=== PATIENT | female | born 1995 | race Asian ===

== ENCOUNTER 2019-11-28 13:52 | Emergency (ER) | payer BC ==
[2019-11-28 14:30] LABS: BILIRUBIN,URINE NEGATIVE (NEGATIVE); GLUCOSE, URINE (UA) NEGATIVE (NEGATIVE); KETONES,URINE (UA) NEGATIVE (NEGATIVE); LEUKOCYTE ESTERASE, URINE NEGATIVE (NEGATIVE); NITRITE,URINE NEGATIVE (NEGATIVE); OCCULT BLOOD,URINE SMALL (NEGATIVE); PH,URINE 5.5 PH (5.0-7.5); PROTEIN,URINE NEGATIVE (NEGATIVE); UROBILINOGEN,URINE 0.2 (NORMAL) E.U./dL (NORMAL)
[2019-11-28 14:32] LABS: CLARITY,URINE HAZY (CLEAR)
[2019-11-28 14:40] LABS: BASOPHILS # (AUTO) 0.1 10^3/uL (0.0-0.1); BASOPHILS % (AUTO) 0.6 %; EOSINOPHILS # (AUTO) 0.8 10^3/uL (0.0-0.7); EOSINOPHILS % (AUTO) 6.8 %; HGB - HEMOGLOBIN 13.3 g/dL (12.0-16.0); LYMPHOCYTES % (AUTO) 17.9 %; MEAN CORPUSCULAR HEMOGLOBIN 31.4 pg (27.0-31.0); MEAN CORPUSCULAR HGB CONC 33.1 g/dL (32.0-36.0); MEAN CORPUSCULAR VOLUME 94.8 fL (81.0-99.0); MEAN PLATELET VOLUME 11.1 fL (7.9-10.8); MONOCYTES # (AUTO) 0.6 10^3/uL (0.0-1.0); MONOCYTES % (AUTO) 4.9 %; NEUTROPHILS # (AUTO) 7.8 10^3/uL (1.5-6.6); NEUTROPHILS % (AUTO) 69.4 %; PLT - PLATELET COUNT 383 10^3/uL (130-450); RED BLOOD COUNT 4.24 10^6/uL (4.20-5.40); RED CELL DISTRIBUTION WIDTH 13.2 % (12.0-15.0); WHITE BLOOD COUNT 11.2 x10^3/uL (4.8-10.8)
[2019-11-28 14:59] LABS: BACTERIA,URINE Rare /HPF (None Seen); RBC,URINE 0-5 /HPF (0-5); SQUAMOUS EPITHELIAL CELL,UR MANY Squamous (<= Few)
[2019-11-28 15:00] LABS: HCG UR QUAL NEGATIVE; MUCUS,URINE Moderate Strands
[2019-11-28 15:14] LABS: ALBUMIN 4.6 g/dL (3.2-5.5); ALBUMIN/GLOBULIN RATIO 1.2 (1.0-2.2); BILIRUBIN,TOTAL 0.6 mg/dL (0.2-1.0); CALCIUM 9.4 mg/dL (8.5-10.3); CREATININE 0.7 mg/dL (0.4-1.0); TOTAL PROTEIN 8.5 g/dL (6.7-8.2)
--- NOTE | 2019-11-28 15:48 | ED Physician Documentation ---
PD HPI ABD PAIN - Stated complaint Stated Complaint: ABD PAIN - Chief complaint Chief Complaint: Abd Pain - History obtained from History obtained from: Patient - History of Present Illness Timing - onset: How many days ago (2) Timing - duration: Days (2) Timing - details: Gradual onset, Waxing and waning Pain level max: 6 Pain level now: 5 Quality: Aching, Pain Location: RLQ, Suprapubic Radiation: No: Chest, , Lower back, Left flank, Left shoulder, Right flank, Right shoulder, Upper back Improved by: Other (nothing) Worsened by: Position, Palpation Associated symptoms: Other (states urine has smelled bad intermittently for a few weeks.). No: Fever, Nausea, Vomiting, Hematemesis, Diarrhea, Constipation, Melena, Hematochezia, Dysuria, Hematuria, Chest pain, Dizzy, Vaginal bleeding, Vaginal dc Recently seen: Not recently seen Review of Systems Ten Systems: 10 systems reviewed and negative Constitutional: denies: Fever, Chills Nose: denies: Rhinorrhea / runny nose, Congestion Respiratory: denies: Cough GI: denies: Nausea, Vomiting, Diarrhea, Hematemesis : reports: Control (IUD x 1 year). denies: Dysuria, Frequency, Hesitancy, Now EGA Skin: denies: Rash, Abrasion (s) Musculoskeletal: denies: Neck pain, Back pain Neurologic: denies: Headache PD PAST MEDICAL HISTORY - Past Medical History Past Medical History: No - Past Surgical History Past Surgical History: No - Present Medications Home Medications: Ambulatory Orders Medication Instructions Recorded Confirmed metroNIDAZOLE [Flagyl] 500 mg PO BID #14 tablet 11/28/19 - Allergies Allergies/Adverse Reactions: Allergies Allergy/AdvReac Type Severity Reaction Status Date / Time No Known Drug Allergies Allergy Verified 11/28/19 13:55 - Living Situation Living Arrangement: reports: At home - Social History Does the pt have substance abuse?: No - Family History Family history: reports: Non contributory PD ED PE NORMAL - Vitals Vital signs reviewed: Yes - General General: Alert and oriented X 3, No acute distress, Well developed/nourished - HEENT HEENT: PERRL, Moist mucous membranes - Neck Neck: Supple, no meningeal sign - Cardiac Cardiac: RRR, Strong equal pulses - Respiratory Respiratory: No respiratory distress, Clear bilaterally - Abdomen Abdomen: Soft, Non distended, Other (Mild suprapubic tenderness. Tender to palpation right lower quadrant at McBurney's point. No guarding or rebound. Otherwise normal abdominal exam.) - Female Female : [place] Greaser present (RN - Jing), Other (Thin white discharge. No CMT.) - Back Back: No CVA TTP, No spinal TTP - Derm Derm: Warm and dry - Extremities Extremities: No edema - Neuro Neuro: Alert and oriented X 3 - Psych Psych: Normal mood, Normal affect Results - Vitals Vitals: Vital Signs - 24 hr 11/28/19 11/28/19 11/28/19 13:56 16:30 18:05 Temperature 36.3 C L 36.9 C Heart Rate 86 82 84 Respiratory 14 16 16 Rate Blood Pressure 124/61 126/63 119/74 O2 Saturation 99 100 100 Oxygen O2 Source Room air - Labs Labs: Laboratory Tests 11/28/19 11/28/19 11/28/19 14:14 14:14 14:34 WBC 11.2 H RBC 4.24 Hgb 13.3 Hct 40.2 MCV 94.8 MCH 31.4 H MCHC 33.1 RDW 13.2 Plt Count 383 MPV 11.1 H Neut # (Auto) 7.8 H Lymph # (Auto) 2.0 [place] # (Auto) 0.6 Eos # (Auto) 0.8 H Baso # (Auto) 0.1 Absolute Nucleated RBC 0.00 Nucleated RBC % 0.0 Sodium Potassium Chloride Carbon Dioxide Anion Gap BUN Creatinine Estimated GFR (MDRD) Glucose Calcium Total Bilirubin AST ALT Alkaline Phosphatase Total Protein Albumin Globulin Albumin/Globulin Ratio Lipase Urine Color YELLOW Urine Clarity HAZY Urine pH 5.5 Ur Specific [place] >=1.030 H >=1.030 H Urine Protein NEGATIVE Urine Glucose (UA) NEGATIVE Urine Ketones NEGATIVE Urine Occult Blood SMALL H Urine Nitrite NEGATIVE Urine Bilirubin NEGATIVE Urine Urobilinogen 0.2 (NORMAL) Ur Leukocyte Esterase NEGATIVE Urine RBC 0-5 Urine WBC 0-3 Ur Squamous Epith Cells MANY Squamous H Urine Bacteria Rare Urine Mucus Moderate Strands Ur Microscopic Review INDICATED Urine Culture Comments NOT INDICATED Urine HCG, Qual NEGATIVE C. glabrata (PCR) C. krusei (PCR) Melissa species DNA T. vaginalis (PCR) Bact Vaginosis (PCR) 11/28/19 11/28/19 14:34 17:33 WBC RBC Hgb Hct MCV MCH MCHC RDW Plt Count MPV Neut # (Auto) Lymph # (Auto) [place] # (Auto) Eos # (Auto) Baso # (Auto) Absolute Nucleated RBC Nucleated RBC % Sodium 139 Potassium 3.7 Chloride 103 Carbon Dioxide 25 Anion Gap 11.0 BUN 11 Creatinine 0.7 Estimated GFR (MDRD) 103 Glucose 131 H Calcium 9.4 Total Bilirubin 0.6 AST 16 ALT 12 Alkaline Phosphatase 46 Total Protein 8.5 H Albumin 4.6 Globulin 3.9 Albumin/Globulin Ratio 1.2 Lipase 31 Urine Color Urine Clarity Urine pH Ur Specific [place] Urine Protein Urine Glucose (UA) Urine Ketones Urine Occult Blood Urine Nitrite Urine Bilirubin Urine Urobilinogen Ur Leukocyte Esterase Urine RBC Urine WBC Ur Squamous Epith Cells Urine Bacteria Urine Mucus Ur Microscopic Review Urine Culture Comments Urine HCG, Qual C. glabrata (PCR) NEGATIVE C. krusei (PCR) NEGATIVE Melissa species DNA NEGATIVE T. vaginalis (PCR) NEGATIVE Bact Vaginosis (PCR) POSITIVE A - Rads (name of study) CT abdomen/pelvis Radiology: Prelim report reviewed, EMP read contemporaneously, See rad report PD MEDICAL DECISION MAKING - ED course Complexity details: reviewed results, re-evaluated patient, considered differential, d/w patient ED course: 24-year-old female with a hemorrhagic right ovarian cyst. She declines any pain medication for this here or for home. Clinically doubt appendicitis. Patient also appears to have bacterial vaginitis on pelvic exam. Will place on Flagyl for this. No UTI. No pyelonephritis. Denies any STD exposure, but gonorrhea and Chlamydia testing were sent. Patient counseled regarding signs and symptoms for which I believe and urgent re-evaluation would be necessary. Patient with good understanding of and agreement to plan and is comfortable going home at this time This document was made in part using voice recognition software. While efforts are made to proofread this document, sound alike and grammatical errors may occur. A normal or abnormal appendix could not be located at the right lower quadrant and therefore appendicitis remains a potential etiology of the findings. However, the abnormality discussed above comprised of high density free fluid within the peritoneal space and an involuting ruptured ovarian cyst raises the question of rupture of a hemorrhagic ovarian cyst as cause of the current symptomatology. Departure - Departure Disposition: 01 Home, Self Care Clinical Impression: Hemorrhagic cyst of right ovary, Bacterial vaginitis Condition: Good Instructions: ED Cyst Ovarian, ED Vaginosis Bacterial Follow-Up: your,doctor in 1 week [Other] - Within 1 week Prescriptions: metroNIDAZOLE [Flagyl] 500 mg PO BID #14 tablet Comments: Take the Flagyl until gone. Return if you worsen. You will receive a phone call if any of your other tests are positive. The hemorrhagic ovarian cyst should resolve on its own. Return for increasing pain, lightheadedness, dizziness or any other new or worrisome symptoms. Discharge Date/Time: 11/28/19 18:21
[2019-11-28] MEDS ORDERED: IOVERSOL 320 100 ML VIAL IVP ONE ×2 (15:51→18:15)
--- NOTE | 2019-11-28 16:47 | CT Report ---
PROCEDURE: Abdomen/Pelvis W INDICATIONS: RLQ pain, possible appendicitis CONTRAST: IV CONTRAST: Optiray 320 ml: 100 PO CONTRAST: *NO PO CONTRAST TECHNIQUE: After the administration of contrast, 5 mm thick sections acquired from the diaphragms to the sym physis. 5 mm thick coronal and sagittal reformats were acquired. For radiation dose reduction, the following was used: automated exposure control, adjustment of mA and/or kV according to patient size . COMPARISON: None. FINDINGS: Image quality: Excellent. ABDOMEN: Lung bases: Lung bases are clear. Heart size is normal. Solid organs: Liver and spleen are normal in size and enhancement. Gallbladder Biliary system is non dilated. Pancreas enhances normally. No adrenal nodules. Kidneys demonstrate normal size an d enhancement, without hydronephrosis. Peritoneum and bowel: Bowel loops demonstrate normal wall thickness and caliber. No free fluid or a ir. Nodes and vessels: No retroperitoneal or mesenteric adenopathy by size criteria. Aorta and inferior vena cava are normal in size. Miscellaneous: No ventral hernias. PELVIS: Genitourinary: Bladder wall thickness is normal. Centrally positioned IUD. Miscellaneous: No inguinal hernias or adenopathy. At the right lower quadrant there is what appears to be an involuting right ovarian cyst (series 3 image 67) with adjacent fluid that is higher than w ater in density with an appearance that could represent hemorrhagic ruptured ovarian cyst. A normal o r abnormal appendix could not be located at the right lower quadrant. Bones: No suspicious bony lesions. No vertebral body compression fractures. IMPRESSION: A normal or abnormal appendix could not be located at the right lower quadrant and there fore appendicitis remains a potential etiology of the findings. However, the abnormality discussed ab ove comprised of high density free fluid within the peritoneal space and an involuting ruptured ovari an cyst raises the question of rupture of a hemorrhagic ovarian cyst as cause of the current symptoma tology. Centrally positioned IUD noted. Reviewed by: Ori Alfredo MD on 11/28/2019 4:45 PM PDT Approved by: Ori Alfredo MD on 11/28/2019 4:45 PM PDT Station ID: [id number]
[2019-11-28] MEDS ORDERED: metroNIDAZOLE 250 MG TABLET PO STA (17:36)
[2019-11-28 18:07] VITALS: BP 119/74
[2019-11-28 20:57] LABS: CANDIDA GROUP DNA NEGATIVE (NEGATIVE); CANDIDA KRUSEI DNA NEGATIVE (NEGATIVE); TRICHOMONAS VAGINALIS DNA NEGATIVE (NEGATIVE)
[2019-11-28 22:07] LABS: TRICHOMONAS VAGINALIS DNA NEGATIVE (NEGATIVE)
== END 2019-11-28 18:21 | disposition home or self-care (01) ==
LOC: ED 13:52
DX: N83.201 Unspecified ovarian cyst, right side (principal); N76.0 Acute vaginitis
CPT/HCPCS: 36415; 74177; 80053; 81001; 81025; 83690; 85025; 87481; 87491; 87591; 87661; 87801; 99284; A9270; Q9967; 81003; 87086

== ENCOUNTER 2020-03-05 10:57 | Outpatient (CLI) | payer BC ==
[2020-03-05 13:19] LABS: BILIRUBIN,URINE NEGATIVE (NEGATIVE); GLUCOSE, URINE (UA) NEGATIVE (NEGATIVE); KETONES,URINE (UA) NEGATIVE (NEGATIVE); LEUKOCYTE ESTERASE, URINE NEGATIVE (NEGATIVE); NITRITE,URINE NEGATIVE (NEGATIVE); OCCULT BLOOD,URINE TRACE-INTA (NEGATIVE); PROTEIN,URINE NEGATIVE (NEGATIVE); UROBILINOGEN,URINE 0.2 (NORMAL) E.U./dL (NORMAL)
[2020-03-05 13:22] LABS: CLARITY,URINE CLEAR (CLEAR)
[2020-03-05 14:16] LABS: BACTERIA,URINE Many /HPF (None Seen); RBC,URINE 0-5 /HPF (0-5); SQUAMOUS EPITHELIAL CELL,UR FEW Squamous (<= Few)
[2020-03-05 18:15] LABS: ALBUMIN 4.5 g/dL (3.2-5.5); ALBUMIN/GLOBULIN RATIO 1.3 (1.0-2.2); BILIRUBIN,TOTAL 0.5 mg/dL (0.2-1.0); CALCIUM 9.2 mg/dL (8.5-10.3); CREATININE 0.7 mg/dL (0.4-1.0); TOTAL PROTEIN 8.1 g/dL (6.7-8.2)
[2020-03-05 18:17] LABS: BASOPHILS # (AUTO) 0.1 10^3/uL (0.0-0.1); BASOPHILS % (AUTO) 0.9 %; EOSINOPHILS # (AUTO) 0.6 10^3/uL (0.0-0.7); EOSINOPHILS % (AUTO) 7.2 %; HGB - HEMOGLOBIN 13.6 g/dL (12.0-16.0); LYMPHOCYTES % (AUTO) 24.6 %; MEAN CORPUSCULAR HEMOGLOBIN 29.5 pg (27.0-31.0); MEAN CORPUSCULAR HGB CONC 31.1 g/dL (32.0-36.0); MEAN PLATELET VOLUME 10.7 fL (7.9-10.8); MONOCYTES # (AUTO) 0.5 10^3/uL (0.0-1.0); MONOCYTES % (AUTO) 5.8 %; NEUTROPHILS % (AUTO) 61.1 %; PLT - PLATELET COUNT 458 10^3/uL (130-450); RED BLOOD COUNT 4.61 10^6/uL (4.20-5.40); RED CELL DISTRIBUTION WIDTH 12.9 % (12.0-15.0); WHITE BLOOD COUNT 8.1 x10^3/uL (4.8-10.8)
== END 2020-03-05 23:59 | disposition home or self-care (01) ==
LOC: LAB.WCP 10:57
PROVIDERS: ATTEND Nurse Practitioner Family
DX: R82.998 Other abnormal findings in urine (principal)
CPT/HCPCS: 36415; 80053; 81001; 85025; 87086; 87181

== ENCOUNTER 2021-03-19 12:38 | Outpatient (CLI) | payer BC ==
[2021-03-19 18:06] LABS: CALCIUM 8.9 mg/dL (8.5-10.3); POTASSIUM 3.7 mmol/L (3.5-5.0)
[2021-03-19 18:08] LABS: BASOPHILS # (AUTO) 0.1 10^3/uL (0.0-0.1); BASOPHILS % (AUTO) 0.8 %; EOSINOPHILS # (AUTO) 0.4 10^3/uL (0.0-0.7); EOSINOPHILS % (AUTO) 5.9 %; HCT - HEMATOCRIT 40.9 % (37.0-47.0); HGB - HEMOGLOBIN 13.2 g/dL (12.0-16.0); LYMPHOCYTES # (AUTO) 1.8 10^3/uL (1.5-3.5); LYMPHOCYTES % (AUTO) 30.4 %; MEAN CORPUSCULAR HEMOGLOBIN 30.2 pg (27.0-31.0); MEAN CORPUSCULAR HGB CONC 32.3 g/dL (32.0-36.0); MEAN CORPUSCULAR VOLUME 93.6 fL (81.0-99.0); MEAN PLATELET VOLUME 11.2 fL (7.9-10.8); MONOCYTES # (AUTO) 0.4 10^3/uL (0.0-1.0); MONOCYTES % (AUTO) 6.7 %; NEUTROPHILS # (AUTO) 3.3 10^3/uL (1.5-6.6); NEUTROPHILS % (AUTO) 55.9 %; PLT - PLATELET COUNT 439 10^3/uL (130-450); RED BLOOD COUNT 4.37 10^6/uL (4.20-5.40); RED CELL DISTRIBUTION WIDTH 12.3 % (12.0-15.0)
[2021-03-19 18:21] LABS: THYROID STIMULATING HORMONE 1.15 uIU/mL (0.34-5.60)
[2021-03-19 18:30] LABS: ALBUMIN/GLOBULIN RATIO 1.1 (1.0-2.2); BILIRUBIN,TOTAL 0.7 mg/dL (0.2-1.0); CREATININE 0.6 mg/dL (0.4-1.0); TOTAL PROTEIN 7.5 g/dL (6.7-8.2)
[2021-03-19 22:14] LABS: CHLAMYDIA TRACHOMATIS DNA NEGATIVE (NEGATIVE); NEISSERIA GONORRHOEAE DNA NEGATIVE (NEGATIVE); TRICHOMONAS VAGINALIS DNA NEGATIVE (NEGATIVE)
[2021-03-19 22:54] LABS: BACTERIAL VAGINOSIS DNA POSITIVE (NEGATIVE); CANDIDA GLABRATA DNA NEGATIVE (NEGATIVE); CANDIDA GROUP DNA NEGATIVE (NEGATIVE); CANDIDA KRUSEI DNA NEGATIVE (NEGATIVE); TRICHOMONAS VAGINALIS DNA NEGATIVE (NEGATIVE)
[2021-03-21 13:31] LABS: NIL 0.03 IU/mL; TB1-NIL <0.00 IU/mL; TB2-NIL <0.00 IU/mL
== END 2021-03-19 12:39 | disposition home or self-care (01) ==
LOC: LAB.N 12:38
PROVIDERS: ATTEND Physician Assistant
DX: Z00.00 Encounter for general adult medical examination without abnormal findings (principal); Z13.29 Encounter for screening for other suspected endocrine disorder; Z11.3 Encounter for screening for infections with a predominantly sexual mode of transmission; Z11.1 Encounter for screening for respiratory tuberculosis
CPT/HCPCS: 36415; 80053; 81599; 84443; 85025; 86480; 87255; 87491; 87591; 87661; 87801